=== PATIENT | female | born 1945 | race African-American/Black ===

== ENCOUNTER 2017-02-05 12:19 | Emergency (ER) | payer OTHER, MEDICARE, MEDICAID ==
[~2017-02-05] VITALS: Ht 167.6 cm; Wt 55.4 kg
[~2017-02-05 12:19] MED LIST: BUSP10TA8 PO; RANI150UDC PO; TAB-TAB PO
[2017-02-05 12:27] VITALS: BP 130/73; PULSE 82; RESP 16; TEMP 98.2; O2SAT 100
[2017-02-05] MEDS ORDERED: BUSP10TA PO (12:43)
--- NOTE | 2017-02-05 13:01 | PD ---
HPI Chief Complaint: Fall Time Seen by Provider: 12:48 Travel History International Travel<30 days: No Contact w/Intl Traveler<30days: No Traveled to known affect area: No History of Present Illness HPI The patient was seen and examined in the presence of the nurse. This patient complains of some discomfort in her right groin. Yesterday afternoon she slipped on some grapes and fell. She's been ambulatory since. Symptoms severity is moderate. Duration is 22 hours. No alleviating factors. No Exacerbating factors PFSH Past Medical History Arthritis: Yes Anxiety: Yes Cardiovascular Problems: Yes (htn on meds prn) Hypertension: Yes Tetanus Vaccination: Unknown Influenza Vaccination: No ?: Not Social History Alcohol Use: No Tobacco Use: No Substance Use: No Allergies-Medications (Allergen,Severity, Reaction): Coded Allergies: azithromycin (Unverified Allergy, Severe, Tachycardia, 02/05/17) penicillin G (Unverified Allergy, Severe, 02/05/17) Reported Meds & Prescriptions Reported Meds & Active Scripts Active Reported Buspirone (Buspirone HCl) 10 Mg Tab 10 Mg PO BID Review of Systems General / Constitutional: No: Fever Eyes: No: Visual changes HENT: No: Headaches Cardiovascular: No: Chest Pain or Discomfort Respiratory: No: Shortness of Breath Gastrointestinal: No: Abdominal Pain Genitourinary: No: Dysuria Musculoskeletal: Positive: Pain Skin: No Rash Neurologic: No: Weakness Psychiatric: No: Depression Endocrine: No: Polydipsia Hematologic/Lymphatic: No: Easy Bruising Physical Exam Narrative GENERAL: Well-nourished, well-developed patient in no apparent distress. SKIN: Focused skin assessment reveals no rash and nodules. Skin is Warm and dry. HEAD: Atraumatic. Normocephalic. EYES: Pupils equal and round. No scleral icterus. No injection or drainage. ENT: No nasal bleeding or discharge. Mucous membranes pink and moist. NECK: Trachea midline. No JVD. CARDIOVASCULAR: Regular rate and rhythm. No murmur appreciated. RESPIRATORY: No accessory muscle use. Clear to auscultation. Breath sounds equal bilaterally. GASTROINTESTINAL: Abdomen soft, non-tender, nondistended. Hepatic and splenic margins not palpable. MUSCULOSKELETAL: No obvious deformities. No clubbing. No cyanosis. No edema. Good range of motion of both hips with no long bone tenderness NEUROLOGICAL: Awake and alert. No obvious cranial nerve deficits. Motor grossly within normal limits. Normal speech. PSYCHIATRIC: Appropriate mood and affect; insight and judgment normal. Data Data Last Documented VS Vital Signs Date Time Temp Pulse Resp B/P (MAP) Pulse Ox O2 Delivery O2 Flow Rate FiO2 02/05/17 12:27 98.2 82 16 130/73 (92) 100 Orders Orders Pelvis, Ap Only (Routine) (02/05/17 ) MDM Medical Decision Making Medical Screen Exam Complete: Yes Emergency Medical Condition: Yes Medical Record Reviewed: Yes Differential Diagnosis Pelvic fracture, contusion, strain Narrative Course I have reviewed the patient's electronic medical record. I reviewed her pelvis x-ray which shows no fracture and some hip arthritis Stable for outpatient follow-up. Diagnosis Primary Impression: Pelvic straddle injury of soft tissues Qualified Codes: S39.83XA - Other specified injuries of pelvis, initial encounter Additional Instructions: The patient was advised to follow up with their physician and return if they worsen. Med/Other Pt SpecificInfo: Other Disposition: 01 DISCHARGE HOME Condition: Stable Darrick Solis MD Feb 05, 2017 13:01
--- NOTE | 2017-02-05 14:02 | RADRPT ---
EXAM DATE/TIME: 02/05/2017 13:05 [facility] COMPARISON: No previous studies available for comparison. INDICATIONS : Right groin pain post slip & fall. MEDICAL HISTORY : Arthritis. Hypertension SURGICAL HISTORY : None. ENCOUNTER: Initial ACUITY: 2 days PAIN SCORE: 6/10 LOCATION: Right pelvis/groin FINDINGS: AP view of the pelvis demonstrates no acute fracture or dislocation. The bones are undermineralized. No soft tissue abnormality or radiopaque foreign body is identified. There is moderate right hip join t osteoarthritis with osteophytes and joint space narrowing. CONCLUSION: 1. No acute pelvis abnormality is identified. 2. The bones are undermineralized and there is right hip joint osteoarthritis. Chaitanya Michelle MD on February 05, 2017 at 14:00 Board Certified Radiologist. This report was verified electronically.
== END 2017-02-05 14:32 | disposition home or self-care (01) ==
LOC: PHED 12:19
DX: S39.83XA Other specified injuries of pelvis, initial encounter (principal); W01.0XXA Fall on same level from slipping, tripping and stumbling without subsequent striking against object, initial encounter
CPT/HCPCS: 72170; 99283

== ENCOUNTER 2017-04-04 09:11 | Emergency (ER) | payer MEDICARE, MEDICAID ==
[~2017-04-04] VITALS: Ht 167.6 cm; Wt 53.5 kg
[~2017-04-04 09:11] MED LIST changes: +BUSP10TA PO; -BUSP10TA8 PO; -RANI150UDC PO; -TAB-TAB PO
[2017-04-04 09:14] VITALS: BP 146/99; PULSE 98; RESP 16; TEMP 98.5; O2SAT 100
--- NOTE | 2017-04-04 09:34 | PD ---
HPI Chief Complaint: Cold / Flu Symptoms Time Seen by Provider: 09:25 Travel History International Travel<30 days: No Contact w/Intl Traveler<30days: No Traveled to known affect area: No History of Present Illness HPI The patient was seen and examined in the presence of the nurse. This patient complains of 2 and 1 half weeks of cough and congestion and sore throat and runny nose and diarrhea. She reports decreased appetite and generalized weakness. Symptoms moderately severe. No alleviating factors. No exacerbating factors. She tried some pyul-cjl-liuvick medications without relief. Denies ill contacts PFSH Past Medical History Arthritis: Yes Anxiety: Yes Cardiovascular Problems: Yes (hx of htn takes no meds at this time) Hypertension: Yes ?: Not Social History Alcohol Use: No Tobacco Use: No Substance Use: No Allergies-Medications (Allergen,Severity, Reaction): Coded Allergies: azithromycin (Unverified Allergy, Severe, Tachycardia, 04/04/17) penicillin G (Unverified Allergy, Severe, 04/04/17) Reported Meds & Prescriptions Reported Meds & Active Scripts Active Reported Buspirone (Buspirone HCl) 10 Mg Tab 10 Mg PO BID Review of Systems General / Constitutional: No: Fever Eyes: No: Visual changes HENT: Positive: Sore Throat, Congestion, No: Headaches Cardiovascular: No: Chest Pain or Discomfort Respiratory: Positive: Cough, No: Shortness of Breath Gastrointestinal: Positive: Diarrhea, Loss of Appetite, No: Abdominal Pain Genitourinary: No: Dysuria Musculoskeletal: Positive: Weakness, No: Pain Skin: No Rash Neurologic: Positive: Weakness Psychiatric: No: Depression Endocrine: No: Polydipsia Hematologic/Lymphatic: No: Easy Bruising Physical Exam Narrative GENERAL: Well-nourished, well-developed patient in no apparent distress. SKIN: Focused skin assessment reveals no rash and nodules. Skin is Warm and dry. HEAD: Atraumatic. Normocephalic. EYES: Pupils equal and round. No scleral icterus. No injection or drainage. ENT: No nasal bleeding or discharge. Mucous membranes pink and moist. NECK: Trachea midline. No JVD. CARDIOVASCULAR: Regular rate and rhythm. No murmur appreciated. RESPIRATORY: No accessory muscle use. Clear to auscultation. Breath sounds equal bilaterally. GASTROINTESTINAL: Abdomen soft, non-tender, nondistended. Hepatic and splenic margins not palpable. MUSCULOSKELETAL: No obvious deformities. No clubbing. No cyanosis. No edema. NEUROLOGICAL: Awake and alert. No obvious cranial nerve deficits. Motor grossly within normal limits. Normal speech. PSYCHIATRIC: Appropriate mood and affect; insight and judgment normal. Data Data Last Documented VS Vital Signs Date Time Temp Pulse Resp B/P (MAP) Pulse Ox O2 Delivery O2 Flow Rate FiO2 04/04/17 09:14 98.5 98 16 146/99 (115) 100 Orders Orders Chest, Single Ap (04/04/17 ) Iv Access Insert/Monitor (04/04/17 09:31) Complete Blood Count With Diff (04/04/17 09:31) Basic Metabolic Panel (Bmp) (04/04/17 09:31) Influenzae A/B Antigen (04/04/17 09:34) Labs Laboratory Tests Test 04/04/17 09:40 White Blood Count 2.7 TH/MM3 Red Blood Count 4.61 MIL/MM3 Hemoglobin 14.2 GM/DL Hematocrit 43.6 % Mean Corpuscular Volume 94.4 FL Mean Corpuscular Hemoglobin 30.8 PG Mean Corpuscular Hemoglobin Concent 32.6 % Red Cell Distribution Width 12.4 % Platelet Count 118 TH/MM3 Mean Platelet Volume 9.1 FL Neutrophils (%) (Auto) 54.8 % Lymphocytes (%) (Auto) 33.8 % Monocytes (%) (Auto) 9.2 % Eosinophils (%) (Auto) 0.9 % Basophils (%) (Auto) 1.3 % Neutrophils # (Auto) 1.5 TH/MM3 Lymphocytes # (Auto) 0.9 TH/MM3 Monocytes # (Auto) 0.3 TH/MM3 Eosinophils # (Auto) 0.0 TH/MM3 Basophils # (Auto) 0.0 TH/MM3 CBC Comment DIFF FINAL Differential Comment Blood Urea Nitrogen 8 MG/DL Creatinine 0.76 MG/DL Random Glucose 106 MG/DL Calcium Level 9.8 MG/DL Sodium Level 141 MEQ/L Potassium Level 4.1 MEQ/L Chloride Level 106 MEQ/L Carbon Dioxide Level 29.8 MEQ/L Anion Gap 5 MEQ/L Estimat Glomerular Filtration Rate 91 ML/MIN MDM Medical Decision Making Medical Screen Exam Complete: Yes Emergency Medical Condition: Yes Medical Record Reviewed: Yes Differential Diagnosis Flu syndrome, gastroenteritis, dehydration, likely abnormality, depression Narrative Course I have reviewed the patient's electronic medical record. I saw this patient 2 months ago in the ER for fall and her x-rays were negative IV placed CBC shows some leukopenia and thrombocytopenia which are chronic problems this patient has dating back at least 6 years Metabolic profile is normal I reviewed her chest x-ray is negative for infiltrate but does show a nodule. I reviewed this with the patient. She is to contact her physician and discuss it and discuss outpatient chest CT Influenza swab is negative Stable for outpatient follow-up Diagnosis Primary Impression: Generalized weakness Additional Impressions: Loss of appetite Cough in adult Pulmonary nodule, right Additional Instructions: The patient was advised to follow up with their physician and return if they worsen. Discuss her pulmonary nodule with your physician. Med/Other Pt SpecificInfo: Other Disposition: 01 DISCHARGE HOME Condition: Stable Darrick Solis MD Apr 04, 2017 09:34
[2017-04-04 09:49] LABS: AUTOMATED NEUTROPHIL # 1.5 TH/MM3 (1.8-7.7); BASOPHIL % 1.3 % (0.0-2.0); EOSINOPHIL % 0.9 % (0.0-4.0); HEMATOCRIT 43.6 % (35.0-46.0); HEMOGLOBIN 14.2 GM/DL (11.6-15.3); LYMPH % 33.8 % (9.0-44.0); LYMPHOCYTE # 0.9 TH/MM3 (1.0-4.8); MEAN CELL VOLUME 94.4 FL (80.0-100.0); MEAN CORPUSCULAR HEMOGLOBIN 30.8 PG (27.0-34.0); MEAN CORPUSCULAR HGB CONC 32.6 % (32.0-36.0); MEAN PLATELET VOLUME 9.1 FL (7.0-11.0); MONO % 9.2 % (0.0-8.0); MONOCYTE # 0.3 TH/MM3 (0-0.9); NEUT % 54.8 % (16.0-70.0); PLATELET COUNT 118 TH/MM3 (150-450); RED BLOOD COUNT 4.61 MIL/MM3 (4.00-5.30); RED CELL DISTRIBUTION WIDTH 12.4 % (11.6-17.2); WHITE BLOOD COUNT 2.7 TH/MM3 (4.0-11.0)
--- NOTE | 2017-04-04 10:04 | RADRPT ---
EXAM DATE/TIME: 04/04/2017 09:43 [facility] COMPARISON: No previous studies available for comparison. INDICATIONS : Cough, fever MEDICAL HISTORY : None. SURGICAL HISTORY : None. ENCOUNTER: Initial ACUITY: 3 weeks PAIN SCORE: 0/10 LOCATION: Bilateral chest FINDINGS: A single view of the chest demonstrates the lungs to be symmetrically aerated without evidence of mas s, infiltrate or effusion. Cardiomegaly tortuous thoracic aorta. Small nodules in the right upper lob e. The cardiomediastinal contours are unremarkable. Osseous structures are intact. CONCLUSION: 1. No evidence for pneumonia. 2. Small nodules right upper lobe. Outpatient CT chest recommended. Avila Zepeda MD on April 04, 2017 at 9:54 Board Certified Radiologist. This report was verified electronically.
[2017-04-04 10:13] LABS: CALCIUM 9.8 MG/DL (8.5-10.1)
[2017-04-04 10:14] LABS: BICARBONATE 29.8 MEQ/L (21.0-32.0)
[2017-04-04 10:17] LABS: CREATININE 0.76 MG/DL (0.50-1.00)
== END 2017-04-04 10:35 | disposition home or self-care (01) ==
LOC: PHED 09:11
DX: R53.1 Weakness (principal); R63.0 Anorexia; R05 Cough; R91.8 Other nonspecific abnormal finding of lung field; R09.81 Nasal congestion; R19.7 Diarrhea, unspecified; D72.819 Decreased white blood cell count, unspecified; D69.6 Thrombocytopenia, unspecified; M19.90 Unspecified osteoarthritis, unspecified site
CPT/HCPCS: 71045; 80048; 85025; 87804; 99284